=== PATIENT | male | born 1975 | race Caucasian/White ===

== ENCOUNTER 2017-09-22 13:44 | Emergency (ER) | payer SELFPAY ==
[2017-09-22 13:52] VITALS: BP 135/77; PULSE 79; TEMP 97.7; BMI 25.1
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
== END 2017-09-22 14:52 | disposition home or self-care (01) ==
LOC: JERFT 13:44
DX: Z48.02 Encounter for removal of sutures (principal); S22.31XD Fracture of one rib, right side, subsequent encounter for fracture with routine healing; Y04.2XXD Assault by strike against or bumped into by another person, subsequent encounter
CPT/HCPCS: 71101-TC-RT-FY; 99281-25